=== PATIENT | male | born 1985 | race Caucasian/White ===

== ENCOUNTER 2017-02-16 19:56 | Emergency (ER) | payer MEDICAID ==
[~2017-02-16] VITALS: Ht 182.9 cm; Wt 73.5 kg
--- NOTE | 2017-02-16 20:21 | Urgent Treatment Center Report ---
See Addendum History of Present Issue Date/Time Seen by Provider 02/16/172013 Visit Reason Pt arrived:Walked Presenting Problem:PT STATES WHILE HE WAS DRIVING HE HAD HIS LEFT ARM RESTED ON THE WINDOW AND A TREE BRANCH HIT HIS LEFT HAND. STATES NOW HAVING PAIN TO HAND Location if Accident: Onset of symptoms date/time:02/16/17/ or onset unknown for:MEDICAL HX UNKNOWN Have you (or family members/close friends) recently traveled outside the [place]? N If Yes, where/when: Have you had exposure to infectious disease within the past month? TB? Other? Specify: c/o left hand pain since 4:30 today. Reports while driving with arm out window, branch struck hand. Immediate pain. Ibuprofen has "calmed it down". No pain now at rest but sharp pain throughout 2nd digits with range of motion. Denies N/T. No discoloration or lesions. Source patient Exam Limitations no limitations ALLERGIES Coded Allergies: No Known Allergies (12/02/15) Home Medications Reported Medications No Known Home Medications History Medical History General CAD? No Angina: No NH: No Hypertension? No Hyperlipidemia? No CHF? No DVT? No PE? No COPD? No Asthma? No Anemia? No GERD? No Gastric ulcers? No GI Bleed? No Hernia? No Thyroid Problems? No Hypothyroidism? No CVA? No Seizures? No Diabetes? No Renal Insuffiency? No UTI? No Stones? No BPH? No GB Disease: No Nephritic Syndrome? No Asplenia? No Hepatitis? No Sickle Cell Disease? No Arthritis? No Migraines? No Cataracts? No Glaucoma? No MRSA? No HIV? No TB? No Anxiety? No Depression? No Cancer? No Immunization HX DT/Tetanus Unknown Surgical Hx Previous Surgery?N Social History Smoking Hx Smoker: Current Every Day Smoker Tobacco: Yes Type Cigarettes Alcohol Alcohol: No Review of Systems All Other Systems Reviewed and Negative Constitutional denies weakness Musculoskeletal see HPI, denies other (no wrist, arm, elbow pain) Skin see HPI Psychiatric/Neurological see HPI Physical Exam Vital Signs Vital Signs Date Time Temp Pulse Resp B/P Pulse O2 O2 Flow FiO2 Ox Delivery Rate 02/16 2010 98.2 69 20 142/107 96 General Appearance normal appearance, no apparent distress Respiratory Status No: respiratory distress. Cardiovascular no peripheral edema Peripheral Pulses Pulses normal Yes (logan radial ) Extremities normal inspection (left hand, wrist, FA), normal ROM left digits 1, 3, 4, 5 and left wrist, hesitant to perform full ROM left 2nd digit but once tries, nearly full ROM, mild tenderness 1st MCP, moderate 2nd MCP, mild pain throughout 2nd digit Neurologic alert, no motor/sensory deficits, oriented x 3 Skin normal color, warm/dry Medical Decision Making LABS/Meds/Orders Pt receiving controlled substance in ED? No Results/Orders Orders Procedure Date/time Status HAND-LT-3 VIEWS 02/16 2014 Active XRAY/CT/US XRAY/CT/US XRAY hand (left) XR interpretation by reviewed by me Xray Results no fracture seen Departure Departure Time of Disposition 2025 Disposition DC Home or Self Care(routine) Clinical Impression Primary Impression: Contusion of left index finger without damage to nail Qualifiers: Encounter type: initial encounter Qualified Code: S60.022A - Contusion of left index finger without damage to nail, initial encounter Condition STABLE Referrals TAQUERIA MORGAN APRN (Family) IMMEDIATELY for new or worsening symptoms OR no noticeable improvement over the next 3-5 days Patient Instructions DI for Contusion, How To Perform RICE (Rest, Ice, Compress, Elevate) Additional Instructions * use as tolerated * Rest * ice 15-20 mins 3-4 times a day * Elevate as discussed as much as possible to help reduce swelling and therefore , pain * Ibuprofen every 6 hours as needed for pain and inflammation. If you need something more, you can take tylenol every 4 hours as needed as long as your primary care provider has told you it is ok to take both. Discharge Counseling Counseled pt/family regarding diagnosis, test results, medications/RX, home care, follow up needs Prescriptions Current Visit Scripts No Known Home Medications at 2027
[2017-02-16 20:30] VITALS: BP 142/107
--- NOTE | 2017-02-17 14:48 | RADIOLOGY REPORT PS360 ---
HAND-LT-3 VIEWS HISTORY: Pain following injury HIT BY TREE BRANCH ORDERING PHYSICIAN: BAO STEINER APRN PATIENT AGE: 31 years COMPARISON: None FINDINGS: No fracture or dislocation. No lytic or blastic change. There is normal mineralization. The joint spaces are well-preserved. No significant degenerative/arthritic changes. No erosive changes evident. IMPRESSION: Negative, no acute finding
== END 2017-02-16 20:32 | disposition home or self-care (01) ==
LOC: UTC 19:56
DX: S60.022A Contusion of left index finger without damage to nail, initial encounter (principal); W20.8XXA Other cause of strike by thrown, projected or falling object, initial encounter; Y93.89 Activity, other specified; Y92.810 Car as the place of occurrence of the external cause

== ENCOUNTER 2017-05-13 07:52 | Emergency (ER) | payer MEDICAID ==
[~2017-05-13] VITALS: Ht 182.9 cm; Wt 68.0 kg
[2017-05-13] MEDS ORDERED: EC NAPROSYN500 MG PO (08:06)
--- OUTSIDE RECORDS SUMMARY | 2017-05-13 08:12 | External Medical Summary Rpt | CCD ---
Author Author WARNER Address Unknown Phone [email or web address] Purpose Continuity of Care Document - through 2016
--- OUTSIDE RECORDS SUMMARY | 2017-05-13 08:12 | External Medical Summary Rpt | CCD ---
Author Author WARNER Address Unknown Phone [email or web address] Purpose Continuity of Care Document - through 2016
[2017-05-13 08:13] LABS: HEMOGLOBIN 15.9 g/dL (14.1-18.0); LYMPH # 2.9 K/mm3 (0.7-4.5)
--- OUTSIDE RECORDS SUMMARY | 2017-05-13 08:13 | External Medical Summary Rpt ---
Author Author WARNER Méndez, [employer] Organization [employer] Address Unknown Phone Unavailable
--- OUTSIDE RECORDS SUMMARY | 2017-05-13 08:13 | External Medical Summary Rpt | CCD ---
Demographics Preferred Language Sinhala Marital Status Unknown Latter-Day Affiliation Unknown Race Unknown Ethnic Group Unknown Author Author WARNER Address Unknown Phone Purpose Continuity of Care Document - through 2016
--- OUTSIDE RECORDS SUMMARY | 2017-05-13 08:13 | External Medical Summary Rpt | CCD ---
Demographics Preferred Language Thai Marital Status Unknown Caodaism Affiliation Unknown Race Unknown Ethnic Group Unknown Author Author WARNER Address Unknown Phone Purpose Continuity of Care Document - through 2016
--- OUTSIDE RECORDS SUMMARY | 2017-05-13 08:13 | External Medical Summary Rpt | CCD ---
Demographics Preferred Language Armenian Marital Status Unknown Quaker Affiliation Unknown Race Unknown Ethnic Group Unknown Author Author , WARNER HYLTON Address Unknown Phone Immunization No patient found.
--- OUTSIDE RECORDS SUMMARY | 2017-05-13 08:13 | External Medical Summary Rpt | CCD ---
Demographics Preferred Language Tongan Marital Status Unknown Sikhism Affiliation Unknown Race Unknown Ethnic Group Unknown Author Author , WARNER HYLTON Address Unknown Phone Immunization No patient found.
--- NOTE | 2017-05-13 08:15 | Emergency Room Report ---
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 N Clinical Suspician of Infection? N Mental Status: 1 - Regular (Normal Baseline) Sepsis Risk:Low Sepsis Risk Have you (or family members/close friends) recently traveled outside the [place]? N If Yes, where/when: Have you had exposure to infectious disease within the past month? TB? Other? 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 He states since his fall 2 days ago that he has trouble walking with overall weakness he states sometimes when he moves his head he has some vertigo sensation. No complaint of fevers or chills. Stomach significant other states that the patient stumbled from the bathroom and then passed out for a couple minutes 2 days ago, she states that he hit the side of his head and face on the LEFT side. He states he has a little bit of residual jaw tenderness from that. Patient states he started getting headaches 3-4 weeks ago which were new for him he denied any falls or trauma prior to that. He states since his fall 2 days ago he has had persistent feeling of weakness in his legs ALLERGIES Coded Allergies: No Known Allergies (12/02/15) Home Medications Reported Medications Naproxen (EC-Naprosyn) 500 MG PO BID MISCELLANEOUS (UNKNOWN MEDICATION) 1 [place] TP PRN PRN PAIN History Medical History General CAD? No Angina: No VT: No Hypertension? No Hyperlipidemia? No CHF? No DVT? No PE? No COPD? No Asthma? No Anemia? No GERD? No Gastric ulcers? No GI Bleed? No Hernia? No Thyroid Problems? No Hypothyroidism? No CVA? No Seizures? No Diabetes? No Renal Insuffiency? No End Stage Renal Disease? No UTI? No Stones? No BPH? No GB Disease: No Nephritic Syndrome? No Asplenia? No Hepatitis? No Sickle Cell Disease? No Arthritis? No Migraines? No Cataracts? No Glaucoma? No MRSA? No HIV? No TB? No Anxiety? No Depression? No Cancer? No Immunization Hx DT/Tetanus Unknown Surgical Hx Previous Surgery?N Social History Smoking Hx Smoker: Current Every Day Smoker Tobacco: Yes Type Cigarettes Alcohol Alcohol: No Review of Systems All Other Systems Reviewed and Negative Physical Exam Vital Signs Vital Signs Date Time Temp Pulse Resp B/P Pulse O2 O2 Flow FiO2 Ox Delivery Rate 05/13 1012 98.0 80 18 122/76 98 05/13 0900 98.0 79 18 110/66 98 05/13 0858 84 133/76 05/13 0858 80 114/68 05/13 0856 79 110/66 05/13 0806 129 122/87 05/13 0806 93 144/98 05/13 0805 97 129/70 05/13 0758 98.2 91 18 134/79 98 General Appearance: Nontoxic Head: Normocephalic, without obvious abnormality, atraumatic. Eyes: conjunctiva/corneas clear ENT: Mucous membranes moist. Neck: No jugular venous distention. Cardiac: regular rate and rhythm Lungs: Clear to auscultation bilaterally Abdomen: Nontender, Nondistended, positive bowel sounds, no rebound : No CVA tenderness Extremities: no edema Musculoskeletal: No chest wall tenderness Skin: No rashes or lesions to exposed skin. Neurologic: Alert. Alert and oriented x3 Cranial nerves intact he does have persistent rotary nystagmus Strength 5 out of 5 Sensation intact to light touch holds both legs off the bed without drift Finger to nose intact Psychiatric: Normal affect (Abigail ARANA, Miah) General Appearance fatigued Respiratory Status No: respiratory distress. Cardiovascular normal exam Neurologic alert Medical Decision Making LABS/Meds/Orders Pt receiving controlled substance in ED? No Comment pt does not meet tpa criteria time onset [address] head is come back per radiologist with some moderate mucoperiosteal thickening of the paranasal sinuses but no evidence of acute endocranial pathology CT C-spine per radiologist has come back with no acute fracture 919 patient still with some persistent rotary nystagmus. denies drug use. atypical migraine versus central pathology, call out to . 940am emiliano Hernández at , they are on diversion currently. call out to [facility] 1004 emiliano Song MD he will see in consult, [facility] Hospitalist will call back, no further tx recommendations at this time 1033 emiliano Espino MD accepts and admission Results/Orders Laboratory Tests 05/13/17 0905: Opiates Screen NEGATIVE, Urine Methadone Screen NEGATIVE, Barbiturates NEGATIVE, Phencyclidine Screen NEGATIVE, Amphetamines Screen NEGATIVE, Benzodiazepines Screen NEGATIVE, Cocaine Screen NEGATIVE, Marijuana (THC) Screen NEGATIVE, Urine Color YELLOW, Urine Appearance SL CLOUDY, Urine pH 7.0, Ur Specific [place] 1.015, Urine Protein NEGATIVE, Urine Ketones NEGATIVE, Urine Blood 1+ H, Urine Nitrate NEGATIVE, Urine Bilirubin NEGATIVE, Urine Urobilinogen 0.2, Ur Leukocyte Esterase NEGATIVE, Urine RBC 3-5, Urine WBC OCC, Urine Bacteria 1+, WBC Casts OCC, Urine Mucus 2+, Urine Glucose NEGATIVE 05/13/17 0800: Lactic Acid 1.6 05/13/17 0800: Sodium 139, Potassium 3.6, Chloride 103, Carbon Dioxide 30, BUN 9, Creatinine 1.1, Estimated Creat Clear 92, Estimated GFR (MDRD) 77, Glucose 112 H, Calcium 9.2, Total Bilirubin 0.5, AST 14 L, ALT 17, Alkaline Phosphatase 129 H, Creatine Kinase 81, CK-MB (CK-2) Rel Index 0.6, CK and CKMB Interp 0.5, Troponin I < 0.02, Total Protein 7.6, Albumin 3.9, Globulin 3.7 H, Albumin/Globulin Ratio 1.1, TSH 0.72, Free T4 Index 8.6, Thyroxine (T4) 9.3, T3 Uptake 37, WBC 9.6, RBC 5.39, Hgb 15.9, Hct 47.5, MCV 88.1, RDW 12.7, Plt Count 216, MPV 7.8, Gran % 56.7, Gran # 5.5, Lymphocytes % 30.0, Monocytes % 7.6, Eosinophils % 4.9, Basophils % 0.7, Lymphocytes # 2.9, Monocytes # 0.7, Eosinophils # 0.5 H, Basophils # 0.1, PUBS MCHC 33.4, MCH 29.4 Current Medication Orders Sig/Mickie Start time Last Medication Dose Route Stop Time Status Admin Aspirin 0 .STK-MED ONE 05/13 933 DC .ROUTE Sodium Chloride 1,000 ML .STK-MED ONE 05/13 933 DC IV Aspirin 324 MG ONCE ONE 05/13 930 DC 05/13 PO 05/13 0931 0939 Diphenhydramine HCl 0 .STK-MED ONE 05/13 924 DC .ROUTE Metoclopramide HCl 0 .STK-MED ONE 05/13 921 DC .ROUTE Diphenhydramine HCl 12.5 MG ONCE ONE 05/13 915 DC 05/13 IV 05/13 916 0926 Metoclopramide HCl 10 MG ONCE ONE 05/13 915 DC 05/13 IVP 05/13 916 0926 Sodium Chloride 1,000 ML .Q1H1M 05/13 915 DC 05/13 IV 05/13 1015 0939 Sodium Chloride 10 ML PRN PRN 05/13 915 AC IV 05/14 0910 Sodium Chloride 1,000 ML .STK-MED ONE 05/13 813 DC IV Sodium Chloride 10 ML PRN PRN 05/13 08 AC IV 05/14 0758 Sodium Chloride 1,000 ML .Q1H1M 05/13 08 DC 05/13 IV 05/13 09 0814 Sodium Chloride 10 ML PRN PRN 05/13 0800 AC IV 05/14 0759 Orders Procedure Date/time Status DIET-NOTHING BY MOUTH 05/13 L Active ORTHOSTATIC B/P 05/[address] HEAD REQ 05/[address] SCAN REQ 05/13 811 Complete ELECTROCARDIOGRAM REQUEST 05/13 809 Active IV SALINE LOCK 05/13 759 Active ORTHOSTATIC B/P 05/13 759 Active CULTURE, BLOOD 05/13 759 Active URINALYSIS/COMPLETE 05/13 759 Complete THYROID PANEL 2 (WITH TSH) 05/13 759 Complete LACTIC ACID 05/13 759 Complete DRUG ABUSE SCREEN (TRIAGE) 05/13 759 Complete CBC WITH AUTO DIFF 05/13 759 Complete CARDIAC ENZYMES 05/13 759 Complete CHEM 12 PROFILE 05/13 759 Complete CM/EKG CM/motor checker Rhythm Normal Sinus Rhythm Rate 90 Ectopy No Comments ER electrocardiogram by myself is rate of 9 and a normal electrocardiogram and Y axis and no ectopy no QT prolongation nonspecific electrocardiogram` XRAY/CT/US XRAY/CT/US XRAY chest XR interpretation by reviewed by me Xray Results normal/NAD Departure Departure Time of Disposition 922 Disposition DC/XFER from ER to [facility] Clinical Impression Primary Impression: Nystagmus Secondary Impressions: Chest pain Qualifiers: Chest pain type: unspecified Qualified Code: R07.9 - Chest pain, unspecified Headache Qualifiers: Headache type: unspecified Headache chronicity pattern: acute headache Intractability: not intractable Qualified Code: R51 - Headache Syncope Qualifiers: Syncope type: unspecified Qualified Code: R55 - Syncope and collapse Condition STABLE ED Critical Care Critical Care No at 103
[2017-05-13 08:35] LABS: BUN 9 mg/dL (7-18); FREE THYROXIN INDEX 8.6 ug/dl (5.93-13.13); GFR (ESTIMATED) 77 ML/MIN (>60)
[2017-05-13 09:12] LABS: URINE BILIRUBIN - DIPSTICK NEGATIVE (NEG); URINE BLOOD 1+ (NEG)
[2017-05-13 09:30] LABS: AMPHETAMINES/METAMPHETAMINES NEGATIVE ng/mL (<1000)
--- NOTE | 2017-05-13 10:04 | RADIOLOGY REPORT PS360 ---
CHEST(2 VIEWS-NOT PORTABLE) HISTORY: Fatigue, weakness, shortness of breath, cough WEAKNESS ORDERING PHYSICIAN: Miah Hayes MD PATIENT AGE: 32 years COMPARISON: None available FINDINGS: The cardiomediastinal silhouette and pulmonary vascularity are within normal limits. The lungs are clear without infiltrates, suspicious nodules, or pleural effusions. No acute bony abnormalities. IMPRESSION: Negative chest, no acute finding
--- NOTE | 2017-05-13 10:05 | RADIOLOGY REPORT PS360 ---
CT HEAD W/O CONTRAST HISTORY: Headache following head injury/contusion with fatigue and syncope FALL, HEADACHE, NYSTAGMUS ORDERING PHYSICIAN: Miah Hayes MD PATIENT AGE: 32 years COMPARISON: None TECHNIQUE: Axial images obtained without contrast. Brain and bone windows reviewed. FINDINGS: No midline shift, mass effect, intracranial hemorrhage, hydrocephalus, or extra-axial fluid collection is evident. The calvarium has an unremarkable appearance. No mastoid effusion. There is mild mucosal thickening of the ethmoid sinuses.. IMPRESSION: 1. No acute intracranial findings. 2. Paranasal sinus disease.
--- NOTE | 2017-05-13 10:07 | RADIOLOGY REPORT PS360 ---
CT CERVICAL SPINE W/O CONT INDICATION: Neck pain following injury FALL, HEADACHE, NYSTAGMUS ORDERING PHYSICIAN: Miah Hayes MD PATIENT AGE: 32 years COMPARISON: None TECHNIQUE: Axial images are obtained without contrast. Sagittal and coronal reformatted images are reviewed as well. FINDINGS: There is reversal of the cervical lordosis which may be due to patient positioning or muscle spasm. There is normal alignment. No fracture or dislocation is evident. No bony canal stenosis. The disc spaces are well-preserved. Upper thoracic images are unremarkable. Scattered small lymph nodes are present in the neck. IMPRESSION: 1. No acute fracture. 2. Reversal cervical lordosis which may be due to patient positioning or muscle spasm.
[2017-05-13 12:15] VITALS: BP 130/72
== END 2017-05-13 12:18 | disposition short-term general hospital (02) ==
LOC: ER 07:52
PROVIDERS: Emergency Medicine
DX: H55.00 Unspecified nystagmus (principal); R07.9 Chest pain, unspecified; R51 Headache; R55 Syncope and collapse; Z72.0 Tobacco use